=== PATIENT | male | born 1990 | race Caucasian/White ===

== ENCOUNTER 2019-10-10 21:45 | Emergency (ER) | payer MEDICAID ==
[~2019-10-10] VITALS: Ht 167.6 cm; Wt 72.6 kg
[2019-10-10 21:50] VITALS: BP 133/77
--- NOTE | 2019-10-10 21:50 | NUR ---
TO BED # 03 AMBULATORY
--- NOTE | 2019-10-10 22:24 | NUR ---
Dr. Harp examining patient.
--- NOTE | 2019-10-10 22:30 | NUR ---
28 Y/O MALE PRESENTS TO ED, C/O LEFT SIDE ABDOMINAL PAIN 06/09. PT STATES PAIN STARTED 3 HOURS AGO PRIOR COMING TO ED. PAIN DOES NOT RADIATE. PT C/O NAUSEA, BS ACTIVE X4 QUADRANTS. PT DENIES ANY DIARRHEA. PT TOOK ADVIL BUT WITH NO RELIEF. PT DENIES ANY CHEST PAIN. PT VSS. ERMD AWARE. WILL CONTINUE TO MONITOR.
[2019-10-10] MEDS ORDERED: KETOROLAC 60 MG/2 ML VIAL IM ONE (22:35)
[2019-10-10] MEDS ORDERED: ONDANSETRON 4 MG ODT PO ONE (22:35)
[2019-10-10 23:45] VITALS: BP 133/77
--- NOTE | 2019-10-10 23:45 | NUR ---
PT DISCHARGED WITH PAPERWORK. EDUCATED PT REGARDING MEDICATIONS AND D/C INSTRUCTIONS. PT VERBALIZED UNDERSTANDING OF TEACHING. TOLD PT TO FOLLOW UP WITH PCP AND WHEN TO RETURN TO ED. PT AT STABLE CONDITION. ALL QUESTIONS ANSWERED.
== END 2019-10-10 23:45 | disposition home or self-care (01) ==
LOC: MED 21:45
DX: R10.12 Left upper quadrant pain (principal); R11.2 Nausea with vomiting, unspecified
CPT/HCPCS: 81002; 96372; 99283; J1885; Q0162

== ENCOUNTER 2021-05-15 11:35 | Emergency (ER) | payer MEDICAID ==
[~2021-05-15] VITALS: Ht 170.2 cm; Wt 73.5 kg
[2021-05-15 11:38] VITALS: BP 119/64
[2021-05-15] MEDS ORDERED: KETOROLAC 30 MG/ML VIAL IM ONE (12:00)
[2021-05-15] MEDS ORDERED: methocarbamoL 500 MG TAB PO SCH (12:00)
[2021-05-15] MEDS ORDERED: METH-1681 PO (12:07)
[2021-05-15] MEDS ORDERED: LIDO1ADH47 TP (12:07)
[2021-05-15] MEDS ORDERED: NAPR-54 PO (12:07)
--- NOTE | 2021-05-15 12:20 | NUR ---
30yo m c/o left upper and left lower back pain x 1 week. pain 8/10 aggravated by movement, alleviated by taking a shower. pt denies trauma or injury to area. denies urinary symptoms. denies any other symptoms. took ibuprofen which provides mild relief. in ed, vss. pt ambulatory. ermd made aware of pt status. pmh: none meds: none nka
[2021-05-15 12:56] VITALS: BP 119/64
--- NOTE | 2021-05-15 12:57 | NUR ---
Patient discharged with v/s stable. Written and verbal after care instructions given and explained. Patient alert, oriented and verbalized understanding of instructions. Ambulatory with steady gait. All questions addressed prior to discharge. ID band removed. Patient advised to follow up with PMD. Rx of Lidocaine patch, naprosyn, robaxin given. Patient educated on indication of medication including possible reaction and side effects. Opportunity to ask questions provided and answered.
== END 2021-05-15 12:57 | disposition home or self-care (01) ==
LOC: MED 11:35
DX: S39.012A Strain of muscle, fascia and tendon of lower back, initial encounter (principal); X58.XXXA Exposure to other specified factors, initial encounter; Y93.89 Activity, other specified; Y92.89 Other specified places as the place of occurrence of the external cause; Y99.8 Other external cause status
CPT/HCPCS: 96372; 99283; J1885